=== PATIENT | male | born 1960 | race Caucasian/White ===

== ENCOUNTER 2019-07-01 21:34 | Emergency (ER) | payer MEDICAID, OTHER ==
[2019-07-01] MEDS ORDERED: Sodium Chloride 0.9% 1,000 ML IV SCH (22:30)
--- NOTE | 2019-07-01 22:32 | EDM.PDOC ---
ED HPI GENERAL MEDICAL PROBLEM - General Chief Complaint: Respiratory Problem Stated Complaint: SOB, PNEUMONIA Time Seen by Provider: 07/01/19 22:00 Source of Information: Reports: Patient History Limitations: Reports: No Limitations - History of Present Illness INITIAL COMMENTS - FREE TEXT/NARRATIVE: Patient presents to ER with complaints of increased cough, fever and nausea/ vomiting. He states he started feeling ill about 2 weeks ago. Has continued to have chills, felt feverish, and coughing up sputum. Does feel more short of breath than usual. Admits to feeling weak. Has not been able to eat due to nausea but admits to drinking a 12 pack of beer each day for the last 2 weeks. Does feel may be constipated. Recently moved here from [place] but otherwise has not travelled or been exposed to anyone with known COVID-19. Onset: Gradual Duration: Week(s): Location: Reports: Chest, Abdomen, Generalized Associated Symptoms: Reports: Cough, cough w sputum, Fever/Chills, Loss of Appetite, Nausea/Vomiting, Shortness of Breath, Weakness. Denies: Confusion, Chest Pain - Related Data Allergies Allergy/AdvReac Type Severity Reaction Status Date / Time No Known Allergies Allergy Verified 07/01/19 22:48 Home Meds: Home Meds . [Unable to Verify Home Med List] 07/01/19 [History] Past Medical History Cardiovascular History: Reports: Hypertension Respiratory History: Reports: COPD Social & Family History - Tobacco Use Smoking Status *Q: Current Every Day Smoker ED ROS GENERAL - Review of Systems Review Of Systems: See Below Constitutional: Reports: Fever, Chills, Malaise, Weakness, Fatigue, Decreased Appetite HEENT: Denies: Ear Pain, Sinus Problem, Throat Pain Respiratory: Reports: Shortness of Breath, Cough. Denies: Wheezing Cardiovascular: Denies: Chest Pain, Edema, Lightheadedness Endocrine: Reports: Fatigue GI/Abdominal: Reports: Constipation, Nausea, Vomiting. Denies: Abdominal Pain, Diarrhea : Reports: No Symptoms Musculoskeletal: Reports: No Symptoms Skin: Reports: No Symptoms Neurological: Reports: No Symptoms ED EXAM, GENERAL - Physical Exam Exam: See Below Exam Limited By: No Limitations General Appearance: Alert, WD/WN, No Apparent Distress Ears: Normal External Exam, Normal TMs Nose: Normal Inspection, Normal Mucosa, No Blood Throat/Mouth: Normal Inspection, Normal Oropharynx Head: Normocephalic Neck: Normal Inspection, Supple Respiratory/Chest: No Respiratory Distress, Lungs Clear, Normal Breath Sounds Cardiovascular: Regular Rate, Rhythm GI/Abdominal: Normal Bowel Sounds, Soft, Non-Tender Extremities: Normal Inspection, No Pedal Edema Neurological: Alert, Oriented Skin Exam: Warm, Dry Course - Orders/Labs/Meds Orders: Active Orders 24 hr Category Date Time Status Ang Chest [CT] Stat Exams 07/01/19 22:55 Ordered Chest 2V [CR] Stat Exams 07/01/19 22:33 Ordered Sodium Chloride 0.9% @ 150 MLS/HR (1000ml) Med 07/01/19 22:30 Ordered Sodium Chloride 0.9% [Normal Saline] 1,000 ml IV ASDIRECTED Medication Orders Sodium Chloride (Normal Saline) 1,000 mls @ 150 mls/hr IV ASDIRECTED LUCIA Last Admin: 07/01/19 22:30 Dose: 150 mls/hr Labs: Laboratory Tests 07/01/19 07/01/19 07/01/19 Range/Units 21:59 22:30 22:30 WBC 15.3 H (4.0-10.0) x10^3/uL RBC 5.06 (4.5-6.0) x10^6/uL Hgb 14.7 (14.0-18.0) g/dL Hct 42.6 (40.0-52.0) % MCV 84.2 (78.0-93.0) fL MCH 29.1 (26.0-32.0) pg MCHC 34.5 (32.0-36.0) g/dL RDW Coeff of Lenore 15.5 H (10.0-15.0) % Plt Count 181 (130-400) x10^3/uL Neut % (Auto) 80.6 H (50.0-80.0) % Lymph % (Auto) 9.0 L (25.0-50.0) % Archer % (Auto) 9.7 (2.0-11.0) % Eos % (Auto) 0.6 (0.0-4.0) % Baso % (Auto) 0.1 L (0.2-1.2) % D-Dimer, Quantitative 0.98 H (<=0.58) mg/LFEU Sodium (136-145) mmol/L Potassium (3.5-5.1) mmol/L Chloride (98-107) mmol/L Carbon Dioxide (21-32) mmol/L Anion Gap (10-20) mmol/L BUN (7-18) mg/dL Creatinine (0.70-1.30) mg/dL Est Cr Clr Drug Dosing Estimated GFR (MDRD) Glucose (74-106) mg/dL Calcium (8.5-10.1) mg/dL Corrected Calcium (8.5-10.1) mg/dL Total Bilirubin (0.2-1.0) mg/dL AST (15-37) U/L ALT (16-63) U/L Alkaline Phosphatase (46-116) U/L C-Reactive Protein (<=0.9) mg/dL Total Protein (6.4-8.2) g/dL Albumin (3.4-5.0) g/dL Globulin Albumin/Globulin Ratio SARS-CoV-2 RNA (RT-PCR) Negative (NEGATIVE) 07/01/19 Range/Units 22:30 WBC (4.0-10.0) x10^3/uL RBC (4.5-6.0) x10^6/uL Hgb (14.0-18.0) g/dL Hct (40.0-52.0) % MCV (78.0-93.0) fL MCH (26.0-32.0) pg MCHC (32.0-36.0) g/dL RDW Coeff of Lenore (10.0-15.0) % Plt Count (130-400) x10^3/uL Neut % (Auto) (50.0-80.0) % Lymph % (Auto) (25.0-50.0) % Archer % (Auto) (2.0-11.0) % Eos % (Auto) (0.0-4.0) % Baso % (Auto) (0.2-1.2) % D-Dimer, Quantitative (<=0.58) mg/LFEU Sodium 133 L (136-145) mmol/L Potassium 3.2 L (3.5-5.1) mmol/L Chloride 91 L (98-107) mmol/L Carbon Dioxide 27 (21-32) mmol/L Anion Gap 18.2 (10-20) mmol/L BUN 24 H (7-18) mg/dL Creatinine 1.2 (0.70-1.30) mg/dL Est Cr Clr Drug Dosing TNP Estimated GFR (MDRD) > 60 Glucose 156 H (74-106) mg/dL Calcium 9.4 (8.5-10.1) mg/dL Corrected Calcium 9.80 (8.5-10.1) mg/dL Total Bilirubin 0.9 (0.2-1.0) mg/dL AST 108 H (15-37) U/L ALT 182 H (16-63) U/L Alkaline Phosphatase 99 (46-116) U/L C-Reactive Protein 1.0 H (<=0.9) mg/dL Total Protein 7.6 (6.4-8.2) g/dL Albumin 3.5 (3.4-5.0) g/dL Globulin 4.1 Albumin/Globulin Ratio 0.85 SARS-CoV-2 RNA (RT-PCR) (NEGATIVE) Meds: Medications Generic Name Dose Route Start Last Admin Trade Name Freq PRN Reason Stop Dose Admin Sodium Chloride 1,000 mls @ 150 mls/hr 07/01/19 22:30 07/01/19 22:30 Normal Saline IV 150 mls/hr ASDIRECTED LUCIA Administration Discontinued Medications Generic Name Dose Route Start Last Admin Trade Name Freq PRN Reason Stop Dose Admin Iopamidol 100 ml 07/01/19 23:05 07/01/19 23:17 Isovue-300 (61%) IVPUSH 07/01/19 23:06 100 ml ONETIME ONE Administration Ondansetron HCl 4 mg 07/01/19 22:35 07/01/19 23:00 Zofran IVPUSH 07/01/19 22:36 4 mg ONETIME ONE Administration - Re-Assessments/Exams Free Text/Narrative Re-Assessment/Exam: 07/01/19 22:20 COVID test done shortly after arrival. Negative. Other labs obtained. 07/01/19 23:21 D-Dimer mildly elevated. CTA of chest done. 07/02/19 00:38 Contacted [facility] and spoke with Dr. Jules due to CT report/chest xray. CT scan was done there in 2016 due to abscess in upper lung and feels scarring and report may coincide with previous concern. As it does state there is a small filling defect but poor contrast filling in the arterial tree, recommends seeing a primary care provider early in the week for bilateral lower leg ultrasounds prior to starting anticoagulation. Will treat for COPD exacerbation. Patient advised of plan. As he just moved to [place], will need to establish care early this week here in [facility] to have further testing done , usual med refills. Did agree to given patient #7 tabs of his usual meds until that appointment can be scheduled. Departure - Departure Time of Disposition: 00:42 Disposition: Home, Self-Care 01 Condition: Fair Clinical Impression: COPD exacerbation, Elevated d-dimer, URI (upper respiratory infection) - Discharge Information *PRESCRIPTION DRUG MONITORING PROGRAM REVIEWED*: No *COPY OF PRESCRIPTION DRUG MONITORING REPORT IN PATIENT MERLE: No Instructions: Shortness of Breath, Adult, [id number], Chronic Obstructive Pulmonary Disease Exacerbation, [id number] Forms: ED Department Discharge Additional Instructions: 1. Rest 2. Push fluids 3. Increase oral intake 4. Prednisone 40 mg daily for 4 days 5. Zithromax 250 mg daily for 4 days 6. 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 Need to establish care on Wednesday for further ultrasounds of legs to rule out clot prior to starting any anticoagulation or may need follow up CT of chest. 8. Return or call with worsening symptoms or concerns. Sepsis Event Note - Focused Exam Date Exam was Performed: 07/01/19 Time Exam was Performed: 23:21 - My Orders Last 24 Hours: My Active Orders 07/01/19 22:30 Sodium Chloride 0.9% @ 150 MLS/HR (1000ml) Sodium Chloride 0.9% [Normal Saline] 1,000 ml IV ASDIRECTED 07/01/19 22:33 Chest 2V [CR] Stat 07/01/19 22:55 Ang Chest [CT] Stat - Assessment/Plan Last 24 Hours: My Active Orders 07/01/19 22:30 Sodium Chloride 0.9% @ 150 MLS/HR (1000ml) Sodium Chloride 0.9% [Normal Saline] 1,000 ml IV ASDIRECTED 07/01/19 22:33 Chest 2V [CR] Stat 07/01/19 22:55 Ang Chest [CT] Stat
[2019-07-01] MEDS ORDERED: Ondansetron 4 MG/2 ML SDV IVPUSH ONE (22:35)
[2019-07-01 22:51] LABS: CHLORIDE,CL 91 mmol/L (98-107); SODIUM,NA 133 mmol/L (136-145)
[2019-07-01 22:52] LABS: ANION GAP 18.2 mmol/L (10-20)
[2019-07-01] MEDS ORDERED: Iopamidol 612 MG/ML 100 ML Bottle IVPUSH ONE (23:05)
[2019-07-02] MEDS ORDERED: Azithromycin 250 MG Tab PO ONE (00:32)
[2019-07-02] MEDS ORDERED: methylPREDNISolone Sodium Succinate 125 MG/2 ML SDV IVPUSH ONE (00:32)
[2019-07-02] MEDS ORDERED: Take Home: predniSONE 20 MG, 2 Tab Pack PO ONE (00:37)
[2019-07-02] MEDS ORDERED: cefTRIAXone 1 GM Vial IVPUSH SCH (00:45)
--- NOTE | 2019-07-02 16:05 | CT ---
[id number] CT/CTA Chest EXAM: CT ANGIOGRAM CHEST INDICATION: ELEVATED D-DIMER/SHORTNESS OF BREATH. COMPARISON: Chest radiograph same date. DISCUSSION: A small right upper lobe pulmonary embolism is suggested (image 25 series 4). Evaluation for emboli, however, is markedly limited by the degree of contrast opacification of the pulmonary vessels. Sequela of chronic obstructive pulmonary disease including moderate apical predominant emphysema and findings of bronchitis. There is mild tubular bronchiectasis throughout both lungs. Air density in the right apex, favor bleb over small loculated pneumothorax. There is opacification of the surrounding parenchyma likely representing pleural and parenchymal scarring, but follow-up may be useful to further exclude infection or underlying neoplasm. The lungs are otherwise clear. No pleural effusions. Normal heart size. No adenopathy. Scattered atherosclerotic plaque in the aorta and its major branches. The imaged upper abdomen is unremarkable. IMPRESSION: 1. The degree of pulmonary vasculature contrast opacification is markedly limited. A small embolus is suggested to right upper lobe. 2. Right apical airspace opacity, favor pleural and parenchymal scarring. Interval follow-up imaging would be useful to help further exclude underlying infection or neoplasm. 3. Chronic obstructive pulmonary disease. Igor Eric MD 07/02/19 [id number] Thank you for allowing us to participate in the care of your patient.
--- NOTE | 2019-07-02 16:09 | CR ---
[id number] RAD/RAD Chest PA And Lateral EXAM: FRONTAL AND LATERAL CHEST INDICATION: COUGH/SHORTNESS OF BREATH. COMPARISON: None. DISCUSSION: Hyperinflation is consistent with chronic obstructive pulmonary disease. Right apical pleural and parenchymal scarring. Normal heart size. IMPRESSION: 1. Chronic obstructive pulmonary disease. 2. Right apical opacities most suggestive of scarring. Igor Eric MD 07/02/19 [id number] Thank you for allowing us to participate in the care of your patient.
== END 2019-07-02 01:05 | disposition home or self-care (01) ==
LOC: VM.ED 21:34
DX: J44.1 Chronic obstructive pulmonary disease with (acute) exacerbation (principal); R79.1 Abnormal coagulation profile; J06.9 Acute upper respiratory infection, unspecified; I10 Essential (primary) hypertension; F17.200 Nicotine dependence, unspecified, uncomplicated
CPT/HCPCS: 71046; 71275; 80053; 85025; 85379; 86140; 96361; 96374; 96375; 99284-25; A9270-GY; J0696; J2405; J2930; J7030; J7512; Q9967; U0002

== ENCOUNTER 2022-07-20 21:11 | Inpatient (IN) | payer MEDICAID ==
[2022-07-20] MEDS ORDERED: Albuterol/Ipratropium 3.0-0.5 MG/3 ML Neb Soln NEB ONE (21:17)
[2022-07-20] MEDS ORDERED: methylPREDNISolone Sodium Succinate 125 MG/2 ML SDV IVPUSH ONE (21:35)
[2022-07-20 21:48] LABS: HEMOGLOBIN 13.9 g/dL (14.0-18.0); MEAN CORPUSCULAR HEMOGLOBIN 24.1 pg (26.0-32.0); MEAN CORPUSCULAR HGB CONC 33.9 g/dL (32.0-36.0); MEAN CORPUSCULAR VOLUME 71.1 fL (78.0-93.0); PLATELET COUNT,PLT 432 x10^3/uL (130-400); RED BLOOD CELL COUNT 5.77 x10^6/uL (4.5-6.0)
[2022-07-20 21:51] LABS: WHITE BLOOD CELL COUNT,WBC 21.5 x10^3/uL (4.0-10.0)
[2022-07-20] MEDS ORDERED: Sodium Chloride 0.9% 1,000 ML IV ONE (21:57)
[2022-07-20] MEDS ORDERED: cefTRIAXone 2 GM Vial IVPUSH ONE (21:57)
[2022-07-20 22:02] LABS: ANISOCYTOSIS 2+ MODERATE; BAND PERCENT MAN 1 % (0-6); EOSINOPHILS ABSOLUTE MAN 0.2 x10^3/uL (0.0-0.5); EOSINOPHILS PERCENT MAN 1 % (0-4); LYMPHOCYTES ABSOLUTE MAN 1.1 x10^3/uL (1.0-4.8); LYMPHOCYTES PERCENT MAN 5 % (25-50); MONOCYTES ABSOLUTE MAN 1.5 x10^3/uL (0.0-0.8); MONOCYTES PERCENT MAN 7 % (2-11); NEUTROPHILS ABSOLUTE MAN 18.7 x10^3/uL (1.8-7.7); SEG NEUTROPHILS PERCENT MAN 86 % (50-80)
[2022-07-20 22:03] LABS: MICROCYTOSIS 2+ MODERATE; OVALOCYTES 1+ SLIGHT; PLATELET COUNT ESTIMATE INCREASED
[2022-07-20 22:15] LABS: A/G RATIO 0.81; ALANINE AMINOTRANSFERASE,ALT 12 U/L (16-63); ALBUMIN 3.5 g/dL (3.4-5.0); ALKALINE PHOSPHATASE 79 U/L (46-116); ASPARTATE AMNIOTRANSFERASE,AST 12 U/L (15-37); BILIRUBIN TOTAL 0.7 mg/dL (0.2-1.0); BLOOD UREA NITROGEN,BUN 12 mg/dL (7-18); C-REACTIVE PROTEIN 10.1 mg/dL (<=0.9); CALCIUM 9.1 mg/dL (8.5-10.1); CARBON DIOXIDE,CO2 22 mmol/L (21-32); CHLORIDE,CL 97 mmol/L (98-107); GLUCOSE RANDOM 124 mg/dL (70-99); POTASSIUM,K 4.3 mmol/L (3.5-5.1); PROTEIN TOTAL,TP 7.8 g/dL (6.4-8.2); SODIUM,NA 131 mmol/L (136-145)
[2022-07-20 22:16] LABS: ANION GAP 16.3 mmol/L (5-15); ESTIMATED GFR 87 mL/min (>=60)
[2022-07-20] MEDS ORDERED: Iopamidol 612 MG/ML 100 ML Bottle IVPUSH ONE (22:38)
[2022-07-20] MEDS ORDERED: Iopamidol 755 Mg/ML 100 ML Bottle IVPUSH ONE (22:39)
[2022-07-21] MEDS ORDERED: Albuterol 0.083% 2.5 MG/3 ML Neb Soln NEB PRN (01:00)
[2022-07-21] MEDS: Azithromycin 500 MG in Sodium Chloride 0.9% 250 ML IV SCH ×2 (01:46→10:27)
[2022-07-21] MEDS: Apixaban 2.5 MG Tab PO SCH ×3 (01:49→21:07)
[2022-07-21] MEDS: traZODone 50 MG Tab PO SCH ×2 (01:52→21:08)
[2022-07-21 07:06] LABS: BASOPHILS PERCENT AUTO 0.1 % (0.2-1.2); EOSINOPHILS PERCENT AUTO 0.1 % (0.0-4.0); HEMATOCRIT 42.1 % (40.0-52.0); HEMOGLOBIN 13.6 g/dL (14.0-18.0); IMMATURE GRAN ABSOLUTE AUTO 0.13 x10^3/uL (0.00-0.07); LYMPHOCYTES ABSOLUTE AUTO 0.6 x10^3/uL (1.0-4.8); LYMPHOCYTES PERCENT AUTO 2.8 % (25.0-50.0); MEAN CORPUSCULAR HEMOGLOBIN 23.3 pg (26.0-32.0); MEAN CORPUSCULAR HGB CONC 32.3 g/dL (32.0-36.0); MEAN CORPUSCULAR VOLUME 72.2 fL (78.0-93.0); MONOCYTES ABSOLUTE AUTO 0.3 x10^3/uL (0.0-0.8); MONOCYTES PERCENT AUTO 1.5 % (2.0-11.0); NEUTROPHILS ABSOLUTE AUTO 18.7 x10^3/uL (1.8-7.7); NEUTROPHILS PERCENT AUTO 94.8 % (50.0-80.0); PLATELET COUNT,PLT 461 x10^3/uL (130-400); RED BLOOD CELL COUNT 5.83 x10^6/uL (4.5-6.0)
[2022-07-21 07:20] LABS: WHITE BLOOD CELL COUNT,WBC 19.7 x10^3/uL (4.0-10.0)
[2022-07-21 07:30] LABS: C-REACTIVE PROTEIN 10.7 mg/dL (<=0.9); CALCIUM 9.1 mg/dL (8.5-10.1); CREATININE 0.9 mg/dL (0.70-1.30); EST CRCL DRUG DOSING (CG) 88.38 mL/min; POTASSIUM,K 4.2 mmol/L (3.5-5.1)
[2022-07-21 07:32] LABS: ANION GAP 16.2 mmol/L (5-15)
[2022-07-21] MEDS: Albuterol/Ipratropium 3.0-0.5 MG/3 ML Neb Soln NEB SCH ×4 (08:10→21:17)
[2022-07-21] MEDS: methylPREDNISolone Sodium Succinate 40 MG/1 ML SDV IVPUSH SCH ×2 (10:06→21:09)
[2022-07-21] MEDS: amLODIPine 10 MG Tab PO SCH (10:09)
[2022-07-21] MEDS: Omeprazole 20 MG Cap.CR PO SCH (10:10)
[2022-07-21] MEDS: Lisinopril 20 MG Tab PO SCH (10:10)
[2022-07-21] MEDS: Gabapentin 300 MG Cap PO SCH (10:10)
[2022-07-21] MEDS ORDERED: Glucagon,Human Recombinant 1 MG Vial IM PRN (11:51)
[2022-07-21] MEDS ORDERED: 50% Dextrose in Water 50 ML Syringe IVPUSH PRN (11:51)
[2022-07-21] MEDS: Insulin Glarg,Human.Rec.Analog 100 Unit/ML SUBCUT SCH (13:43)
[2022-07-21] MEDS ORDERED: cefTRIAXone 1 GM Vial IVPUSH SCH (21:00)
[2022-07-21] MEDS ORDERED: Azithromycin 500 MG in Sodium Chloride 0.9% 250 ML IV SCH (21:00)
[2022-07-22 07:10] LABS: HEMATOCRIT 42.7 % (40.0-52.0); HEMOGLOBIN 13.6 g/dL (14.0-18.0); MEAN CORPUSCULAR HEMOGLOBIN 23.3 pg (26.0-32.0); MEAN CORPUSCULAR HGB CONC 31.9 g/dL (32.0-36.0); MEAN CORPUSCULAR VOLUME 73.2 fL (78.0-93.0); PLATELET COUNT,PLT 512 x10^3/uL (130-400); RED BLOOD CELL COUNT 5.83 x10^6/uL (4.5-6.0)
[2022-07-22 07:13] LABS: WHITE BLOOD CELL COUNT,WBC 26.3 x10^3/uL (4.0-10.0)
[2022-07-22 07:22] LABS: CREATININE 0.8 mg/dL (0.70-1.30); EST CRCL DRUG DOSING (CG) 99.42 mL/min
[2022-07-22 07:29] LABS: ANISOCYTOSIS 3+ MARKED; BAND PERCENT MAN 2 % (0-6); HYPOCHROMASIA 1+ SLIGHT; LYMPHOCYTES ABSOLUTE MAN 0.8 x10^3/uL (1.0-4.8); LYMPHOCYTES PERCENT MAN 3 % (25-50); MICROCYTOSIS 1+ SLIGHT; MONOCYTES ABSOLUTE MAN 0.8 x10^3/uL (0.0-0.8); MONOCYTES PERCENT MAN 3 % (2-11); NEUTROPHILS ABSOLUTE MAN 24.7 x10^3/uL (1.8-7.7); PLATELET COUNT ESTIMATE INCREASED; SEG NEUTROPHILS PERCENT MAN 92 % (50-80)
[2022-07-22] MEDS: Omeprazole 20 MG Cap.CR PO SCH (08:52)
[2022-07-22] MEDS: Gabapentin 300 MG Cap PO SCH (08:52)
[2022-07-22] MEDS: Lisinopril 20 MG Tab PO SCH (08:53)
[2022-07-22] MEDS: Azithromycin 250 MG Tab PO SCH (08:54)
[2022-07-22] MEDS: amLODIPine 10 MG Tab PO SCH (08:54)
[2022-07-22] MEDS: methylPREDNISolone Sodium Succinate 40 MG/1 ML SDV IVPUSH SCH ×2 (08:55→20:58)
[2022-07-22] MEDS: Albuterol/Ipratropium 3.0-0.5 MG/3 ML Neb Soln NEB SCH ×4 (09:01→20:58)
[2022-07-22] MEDS: Insulin Glarg,Human.Rec.Analog 100 Unit/ML SUBCUT SCH (09:09)
[2022-07-22] MEDS: Arformoterol 15 MCG/2 ML Neb Soln NEB SCH ×2 (12:43→20:58)
[2022-07-22] MEDS: Enoxaparin 40 MG/0.4 ML Syringe SUBCUT SCH (18:17)
[2022-07-22] MEDS: traZODone 50 MG Tab PO SCH (20:58)
[2022-07-23] MEDS: Arformoterol 15 MCG/2 ML Neb Soln NEB SCH (06:52)
[2022-07-23 07:06] LABS: HEMATOCRIT 43.6 % (40.0-52.0); MEAN CORPUSCULAR HEMOGLOBIN 23.3 pg (26.0-32.0); MEAN CORPUSCULAR HGB CONC 32.1 g/dL (32.0-36.0); MEAN CORPUSCULAR VOLUME 72.5 fL (78.0-93.0); RED BLOOD CELL COUNT 6.01 x10^6/uL (4.5-6.0)
[2022-07-23] MEDS: Insulin Glarg,Human.Rec.Analog 100 Unit/ML SUBCUT SCH (07:53)
[2022-07-23] MEDS: methylPREDNISolone Sodium Succinate 40 MG/1 ML SDV IVPUSH SCH (08:01)
[2022-07-23] MEDS: Enoxaparin 40 MG/0.4 ML Syringe SUBCUT SCH (08:01)
[2022-07-23] MEDS: Omeprazole 20 MG Cap.CR PO SCH (08:02)
[2022-07-23] MEDS: amLODIPine 10 MG Tab PO SCH (08:02)
[2022-07-23] MEDS: Lisinopril 20 MG Tab PO SCH (08:03)
[2022-07-23] MEDS: Azithromycin 250 MG Tab PO SCH (08:03)
[2022-07-23] MEDS: Gabapentin 300 MG Cap PO SCH (08:03)
[2022-07-23] MEDS: Albuterol/Ipratropium 3.0-0.5 MG/3 ML Neb Soln NEB SCH ×2 (08:37→13:46)
[2022-07-23] MEDS ORDERED: Cefuroxime 250 MG Tab PO SCH (09:00)
== END 2022-07-23 12:50 | disposition home or self-care (01) | DRG 190 ==
LOC: VM.ED 21:11 → VM.MS 22:41
PROVIDERS: ADMIT Internal Medicine; ATTEND Internal Medicine
DX: J43.9 Emphysema, unspecified (principal); J15.4 Pneumonia due to other streptococci; E87.1 Hypo-osmolality and hyponatremia; I27.82 Chronic pulmonary embolism; I10 Essential (primary) hypertension; G47.00 Insomnia, unspecified; G62.1 Alcoholic polyneuropathy; K21.9 Gastro-esophageal reflux disease without esophagitis; R73.9 Hyperglycemia, unspecified; R79.1 Abnormal coagulation profile; F17.210 Nicotine dependence, cigarettes, uncomplicated; Z79.01 Long term (current) use of anticoagulants; Z79.4 Long term (current) use of insulin; Z20.822 Contact with and (suspected) exposure to COVID-19; Z79.82 Long term (current) use of aspirin; Z98.890 Other specified postprocedural states; Z79.899 Other long term (current) drug therapy
CPT/HCPCS: 36415; 71046; 71275; 80048; 80053; 82947; 83605; 84145; 85025; 85027; 85379; 86140; 87040; 87070; 87205; 93005; 94640; 94667; 94668; 94760; 96361; 96374; 96375; 97161-GP; 99285-25; A9270-GY; J0456; J0696; J1650; J1815-GY; J2920; J2930; J3490; J7030; J7050; J7613-GY; J7620-GY; Q9967; U0002